=== PATIENT | female | born 1950 | race Caucasian/White ===

== ENCOUNTER → 2016-08-27 | Outpatient (CLI) | payer OTHER, MEDICARE ==
--- NOTE | 2016-08-27 14:07 | US ---
Ultrasound and Venous Duplex Doppler Study of the Right Lower Extremity Clinical History: 66-year-old female who had a right knee replacement on June 27, 2016. Rule out blood clot. ICD 10 Diagnostic Code: Z96.659. Technique: A high frequency transducer was used for imaging and Doppler study of the veins of the [facility] lower extremity. Pulsed Doppler and color Doppler were utilized, along with various maneuvers t o assess flow in the veins. Cursory evaluation of the contralateral common femoral vein was obtained for comparison purposes. Comparison Study: None. Findings: The deep veins of the right lower extremity are normally compressible between the groin an d the upper calf, and have normal Doppler waveforms. There is no sonographic evidence of deep venous thrombosis. The greater saphenous vein is compressible. The popliteal fossa is unremarkable. Impression: There is no sonographic evidence of deep or superficial vein thrombosis in the right lowe r extremity.
== END ==
LOC: CIMAGING 13:01
PROVIDERS: ATTEND Orthopaedic Surgery
DX: Z09 Encounter for follow-up examination after completed treatment for conditions other than malignant neoplasm (principal); Z96.659 Presence of unspecified artificial knee joint
CPT/HCPCS: 93971-PO

== ENCOUNTER → 2017-04-02 | Outpatient (CLI) | payer OTHER, MEDICARE | LOC: FIMAGING 10:48 | PROVIDERS: ATTEND Internal Medicine | DX: Z12.31 Encounter for screening mammogram for malignant neoplasm of breast (principal) | CPT/HCPCS: G0202-52 ==

== ENCOUNTER → 2017-06-04 | Outpatient (CLI) | payer OTHER, MEDICARE | LOC: FIMAGING 10:06 | PROVIDERS: ATTEND Internal Medicine Gastroenterology | DX: K76.89 Other specified diseases of liver (principal); K76.0 Fatty (change of) liver, not elsewhere classified ==

== ENCOUNTER → 2017-06-25 | Outpatient (CLI) | payer OTHER, MEDICARE | LOC: FIMAGING 10:33 | PROVIDERS: ATTEND Physician Assistant | DX: M50.321 Other cervical disc degeneration at C4-C5 level (principal); M50.33 Other cervical disc degeneration, cervicothoracic region; M53.2X2 Spinal instabilities, cervical region ==

== ENCOUNTER → 2017-06-26 | Outpatient (CLI) | payer OTHER, MEDICARE | LOC: FIMAGING 19:27 | PROVIDERS: ATTEND Physician Assistant | DX: M50.321 Other cervical disc degeneration at C4-C5 level (principal); M50.322 Other cervical disc degeneration at C5-C6 level; M50.323 Other cervical disc degeneration at C6-C7 level; M50.33 Other cervical disc degeneration, cervicothoracic region; M12.88 Other specific arthropathies, not elsewhere classified, other specified site; M48.02 Spinal stenosis, cervical region; M99.71 Connective tissue and disc stenosis of intervertebral foramina of cervical region ==

== ENCOUNTER → 2018-05-05 | Outpatient (CLI) | payer OTHER, MEDICARE | LOC: FIMAGING 12:37 | PROVIDERS: ATTEND Internal Medicine | DX: Z12.31 Encounter for screening mammogram for malignant neoplasm of breast (principal); Z85.3 Personal history of malignant neoplasm of breast; Z90.12 Acquired absence of left breast and nipple ==

== ENCOUNTER → 2018-06-03 | Outpatient (CLI) | payer OTHER, MEDICARE | LOC: FIMAGING 10:52 | PROVIDERS: ATTEND Internal Medicine | DX: Z13.820 Encounter for screening for osteoporosis (principal); M85.89 Other specified disorders of bone density and structure, multiple sites; S62.101A Fracture of unspecified carpal bone, right wrist, initial encounter for closed fracture; Z78.0 Asymptomatic menopausal state; Z85.3 Personal history of malignant neoplasm of breast; Z98.890 Other specified postprocedural states ==

== ENCOUNTER 2018-06-10 13:22 | Day surgery (SDC) | payer OTHER, MEDICARE ==
--- NOTE | 2018-06-10 06:58 | GHP ---
DATE OF ADMISSION: 06/10/2018 CHIEF COMPLAINT: Left medial forefoot pain. HISTORY OF PRESENT ILLNESS: Patient is a 68-year-old with a history of progressive left forefoot tiffanie n. She is having pain despite shoe and activity modifications and is limiting her activities. PAST MEDICAL HISTORY: Breast cancer. MEDICINES: She takes no medicine on a regular basis. ALLERGIES: Has no drug allergies. PAST SURGICAL HISTORY: Positive for multiple orthopedic surgeries and a previous mastectomy. SOCIAL HISTORY: Negative for tobacco use. FAMILY HISTORY: Noncontributory. PHYSICAL EXAMINATION: GENERAL: She is alert and oriented x3, in no acute distress. HEENT: Head is normocephalic. Pupils equal, round, reactive to light. Extraocular eye movements intact. NECK: S upple. No JVD or lymphadenopathy. CHEST: Clear to auscultation. HEART: Regular rate and rhythm. No murmurs or gallops. ABDOMEN: Soft, nontender, nondistended. GENITAL/RECTAL/ BREASTS: Deferred . EXTREMITIES: Reveals tenderness and diminished range of motion of her left 1st MTP joint. ASSESSMENT: Left hallux rigidus. PLAN: The patient is scheduled to undergo a left 1st metatarsophalangeal implant hemiarthroplasty. /[id number]/MODL
[2018-06-10] MEDS ORDERED: BUPIVACAINE 0.5% 30 ML SDV ONE (13:59)
[2018-06-10] MEDS ORDERED: ceFAZolin 2 GM/DEXTROSE 100 ML IV ONE (14:34)
--- NOTE | 2018-06-10 14:34 | PDANEPAE ---
ANE History of Present Illness 68 yo female with L bunionectomy for repair. ANE Past Medical History - Cardiovascular History Hx Hypertension: No Hx Arrhythmias: Yes Hx Chest Pain: No Hx Coronary Artery / Peripheral Vascular Disease: No Hx CHF / Valvular Disease: No Hx Palpitations: No Cardiovascular History Comment: recent holter monitor for palpitations at [facility]- delivery merchandiser told pt no concerning arrhythmia - Pulmonary History Hx COPD: No Hx Asthma/Reactive Airway Disease: No Hx Recent Upper Respiratory Infection: No Hx Oxygen in Use at Home: No Hx Sleep Apnea: No Sleep Apnea Screening Result - Last Documented: Negative Pulmonary History Comment: hx of bronchitis - Neurologic History Hx Cerebrovascular Accident: No Hx Seizures: No Hx Dementia: No Neurologic History Comment: CURRENTLY [employer] L ARM - better now that she is not picking up her granddaughter - Endocrine History Hx Diabetes: No Hypothyroid: No Hyperthyroid: No Obesity: no - Renal History Hx Renal Disorders: No - Liver History Hx Hepatic Disorders: No - Neurological & Psychiatric Hx Hx Neurological and Psychiatric Disorders: No - Cancer History Hx Cancer: Yes Cancer History Comment: L breast - Congenital Disorder History Hx Congenital Disorders: No - GI History Hx Gastrointestinal Disorders: Yes Gastrointestinal History Comment: recent EGD d/t difficutly swallowing at times - significant reflux noted on esophagram with head down positioning - Other Health History Other Health History: wears reading glasses - Chronic Pain History Chronic Pain: Yes (left foot and back) - Surgical History Prior Surgeries: 06/27/[address] lopez. R foot surgery w/titanium joint and 2 screws 1998. L breast mastectomy 1992, reconstruction 2005 with revision of reconstruction 2013. L4/L5 laminectomy 2009 & 2011. tonsillectomy at 2 yo ANE Review of Systems Review of systems is: negative Review of Systems: - Exercise capacity METS (RN): 4 METS ANE Patient History - Allergies Allergies/Adverse Reactions: No Known Allergies Allergy (Verified 05/21/18 10:30) - Home Medications Home Medications: Ibuprofen/Diphenhydramine Cit [Advil Pm Caplet] 08/21/17 [Last Taken Unknown] - Anes Hx Anes Hx: no prior problems - Smoking Hx Smoking Status: Never smoked - Alcohol Use Alcohol Use: Occasionally - Family Anes Hx Family Anes Hx: neg - N/A Family Hx Anesthesia Complications: none ANE Labs/Vital Signs - Vital Signs Vital Signs: reviewed preoperatively; see RN documention for details Height: 160.02 cm Weight: 64.41 kg ANE Physical Exam - Airway Neck exam: decreased ROM Mallampati Score: Class 2 Mouth exam: normal dental/mouth exam - Pulmonary Pulmonary: clear to auscultation - Cardiovascular Cardiovascular: regular rate and rhythym - ASA Status ASA Status: II ANE Anesthesia Plan Regional Anesthesia: single shot NB (ankle blocks) Total IV Anesthesia: Yes
[2018-06-10] MEDS ORDERED: LR 1,000 ML IV ONE (14:36)
[2018-06-10] MEDS ORDERED: fentaNYL 100 MCG/2 ML INJ ONE (15:17)
[2018-06-10] MEDS ORDERED: DEXAMETHASONE 4 MG/ML VIAL ONE (15:17)
[2018-06-10] MEDS ORDERED: LIDOCAINE 2% 2 ML INJ ONE (15:17)
[2018-06-10] MEDS ORDERED: PROPOFOL/EMULSION 500 MG/50 ML BOTTLE IV ONE (15:17)
[2018-06-10] MEDS ORDERED: LR 250 ML IV PRN (15:48)
[2018-06-10] MEDS ORDERED: fentaNYL 100 MCG/2 ML INJ IVP PRN (15:48)
[2018-06-10] MEDS ORDERED: NALOXONE HCL 0.4 MG/ML INJ IVP PRN (15:48)
[2018-06-10] MEDS ORDERED: ACETAMINOPHEN 500 MG TAB PO PRN (15:48)
[2018-06-10] MEDS ORDERED: HYDROCODONE/APAP 5/325 TAB PO PRN (15:48)
[2018-06-10] MEDS ORDERED: ONDANSETRON 4 MG/2 ML VIAL IVP PRN (15:48)
[2018-06-10] MEDS ORDERED: ALBUTEROL 3 ML DEYVIAL IH PRN (15:48)
--- NOTE | 2018-06-10 16:17 | POSTOPPROG ---
Post Op Note Date of Operation: 06/10/18 Surgeon: Rashaad Low Anesthesia: IV Sedation Pre-op Diagnosis: L Hallux Rigidus Post-op Diagnosis: same Procedure: L 1st MTP implant hemiarthroplasty (Cartiva) Inf/Abcess present in the surg proc area at time of surgery?: No EBL: Minimal
[2018-06-10 18:03] VITALS: BP 148/90
--- NOTE | 2018-06-10 23:01 | GOP ---
DATE OF OPERATION: 06/10/2018 SURGEON: Rashaad Low MD ANESTHESIA: IV sedation plus ankle block performed by the anesthesiologist at my request for intraop erative analgesia and postop pain management. PREOPERATIVE DIAGNOSIS: Left hallux rigidus. POSTOPERATIVE DIAGNOSIS: Left hallux rigidus. PROCEDURE PERFORMED: 1. Left 1st metatarsophalangeal implant hemiarthroplasty (Cartiva). 2. Intraoperative use of fluoroscopy. FINDINGS: ESTIMATED BLOOD LOSS: Minimal. INDICATIONS: Patient is an 68-year-old with history of progressive left 1st MTP pain. Clinically an d radiographically she was noted to have advanced hallux rigidus. Based on her persistence of sympto ms refractory to nonoperative treatment, she is interested in pursuing operative treatment. From an operative standpoint, options including arthrodesis and implant hemiarthroplasty were discussed with the anticipated risks and benefits of both. Patient elected to pursue implant hemiarthroplasty (Cart justus). Patient acknowledged she understood the potential risks of the operation including, but not li mited to, bleeding; infection; neurovascular damage; loss of limb function; implant failure requiring removal, revision, or arthrodesis; and anesthetic risks. She acknowledged she understood the potent ial risks of the planned procedure and postoperative plan well and had all questions answered prior t o surgery. She gave consent for the operative procedure. DESCRIPTION OF PROCEDURE: Patient was brought to the operating room after IV antibiotics were admini stered. She was placed in a supine position. IV sedation and ankle block were performed by the anes thesiologist at my request for postoperative pain management. Tourniquet was placed on the left calf , and left lower leg was prepped and draped in standard sterile fashion. After marking the incision and Jose wrap exsanguination, tourniquet was inflated to 250. Longitudinal incision was made along th e dorsal aspect of the 1st MTP joint. Skin and subcutaneous tissue were sharply incised. Sharp diss ection was carried adjacent to the extensor hallucis longus tendon down to the capsule. The capsule was longitudinally split and reflected medially and laterally. The tourniquet became "venous" and wa s deflated. No untoward bleeding was noted, and the tourniquet was therefore left deflated. 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 Prominent osteophytes were noted on the metatarsal head and pro ximal phalanx. Utilizing a saw and rongeur, osteophytes on the dorsal, medial, and lateral aspects o f the metatarsal head and proximal phalanx were removed. The joint was manipulated, freeing up the p lantar capsule, allowing for full motion of the joint. A guide pin was placed in the central aspect of the metatarsal head. Pin position was confirmed fluoroscopically. Based on intraoperative templa ting, a size 10 mm reamer was utilized to create a trough from the implant. A 10 mm Cartiva implant was impacted into place, remaining approximately 3 mm proud. Toe was taken through range of motion a nd found to have no evidence of impingement. Attention was directed toward closure. The capsule was reapproximated with 2-0 Vicryl suture in interrupted fashion. Subcutaneous tissue closed with 3-0 V icryl suture in interrupted fashion. Skin closed with 4-0 nylon interrupted sutures. The wounds wer e dressed with sterile Adaptic, 4 x 4, Carlo, and Coban. Patient tolerated the procedure well and wa s taken to the recovery room, extubated in stable condition postoperatively. All sponge, needle, and instrument counts were reported as being correct. DRAINS: None. COMPLICATIONS: None. PLAN: Patient will be discharged home weightbearing as tolerated in a postop shoe. /[id number]/MODL
== END 2018-06-10 17:38 | disposition home or self-care (01) ==
LOC: FSGY 13:22
PROVIDERS: ATTEND Orthopaedic Surgery Foot and Ankle Surgery
DX: M20.22 Hallux rigidus, left foot (principal); Z85.3 Personal history of malignant neoplasm of breast
CPT/HCPCS: J0690; J1100; J2704; J3010